=== PATIENT | female | born 1935 | race Caucasian/White ===

== ENCOUNTER 2018-08-21 16:00 | Inpatient (IN) | payer OTHER ==
[~2018-08-21] VITALS: Ht 167.6 cm; Wt 102.1 kg
[2018-08-21 16:13] VITALS: BP_SYST 146
[2018-08-21] MEDS ORDERED: FURO-150 PO (16:23)
[2018-08-21] MEDS ORDERED: LOSA100T3 PO (16:23)
[2018-08-21] MEDS ORDERED: SIMV20TA2 PO (16:23)
[2018-08-21] MEDS ORDERED: ASPI-1153 PO (16:23)
[2018-08-21] MEDS ORDERED: ESCI10TA PO (16:23)
[2018-08-21] MEDS ORDERED: OMEG-95 PO (16:23)
[2018-08-21] MEDS ORDERED: PRO40 PO (16:23)
[2018-08-21] MEDS ORDERED: AMLO5TAB4 PO (16:23)
[2018-08-21 16:45] LABS: HEMATOCRIT 40.2 % (36-48); HEMOGLOBIN 13.9 g/dL (12.0-16.0); RED BLOOD CELL COUNT(AUTO) 4.51 MIL/uL (4.2-6.2)
[2018-08-21 16:46] LABS: MEAN CORPUSCULAR HEMOGLOBIN 31 pg (27-31); MEAN CORPUSCULAR HGB CONC 35 % (32-36); MEAN CORPUSCULAR VOLUME 89 fL (79.0-98.0); RED CELL DISTRIBUTION WIDTH 14.4 % (9.0-15.0)
[2018-08-21 16:47] LABS: BASOPHILS # (AUTO) 0.1 K/uL (0.0-0.2); BASOPHILS % (AUTO) 0.9 % (0.0-2.0); EOSINOPHILS % (AUTO) 0.2 % (0.0-4.0); LYMPHOCYTES # (AUTO) 1.3 K/uL (1.0-5.5); MONOCYTES # (AUTO) 0.6 K/uL (0.0-1.0); MONOCYTES % (AUTO) 6.8 % (1.7-9.3); NEUTROPHILS % (AUTO) 78.1 % (40.0-70.0); PLATELET COUNT (AUTO) 249 K/uL (130-430)
[2018-08-21 16:54] LABS: ANION GAP 11 (5-15); CALCIUM 9.6 mg/dL (8.4-11.0); CHLORIDE 102 mmol/L (98-107); CREATININE 1.06 mg/dL (0.55-1.30); GLUCOSE 121 mg/dL (70-99); POTASSIUM 4.2 mmol/L (3.5-5.1); SODIUM SERUM 136 mmol/L (136-145); UREA NITROGEN, BLOOD 18 mg/dL (8-21)
[2018-08-21 16:59] LABS: ALANINE AMINOTRANSFERASE 26 U/L (12-78); ALBUMIN 3.7 g/dL (3.4-4.8); ASPARTATE AMINOTRANSFERASE 28 U/L (10-37); TOTAL BILIRUBIN 0.6 mg/dL (0.0-1.0)
[2018-08-21 17:13] LABS: INR 0.9 (0.8-1.2); PROTHROMBIN TIME 9.6 SECS (9.5-12.5)
[2018-08-21] MEDS ORDERED: ALBUTEROL SULFATE 0.083% 2.5 MG/3 ML VIAL.NEB INH PRN (18:00)
[2018-08-21] MEDS ORDERED: IPRATROPIUM BROM 0.5 MG/2.5 ML VIAL.NEB (ATROVENT) INH PRN (18:00)
[2018-08-21 18:33] LABS: BILIRUBIN,URINE NEGATIVE (NEGATIVE); BLOOD, URINE NEGATIVE (NEGATIVE); CLARITY/URINE SL HAZY (CLEAR); COLOR,URINE YELLOW (YELLOW); GLUCOSE,URINE NEGATIVE (NEGATIVE); KETONES,URINE TRACE (NEGATIVE); LEUKOCYTE ESTERASE ,URINE 1+ (NEGATIVE); NITRITE, URINE NEGATIVE (NEGATIVE); PH,URINE 5.5 (5.0-8.0); PROTEIN URINE NEGATIVE (NEGATIVE); UROBILINOGEN,URINE 0.2 (0.2-1.0)
[2018-08-21 18:51] LABS: BACTERIA,URINE FEW /HPF (None Seen); MUCUS,URINE 2+ /LPF (None Seen); RBC,URINE NONE SEEN /HPF (0-3)
[2018-08-21 18:56] VITALS: BP_SYST 141
[2018-08-21 19:48] VITALS: BP_SYST 141
[2018-08-21 21:30] VITALS: BP_SYST 139
[2018-08-21] MEDS: methylPREDNISolone SOD SUCC/PF 62.5 MG/ML VIAL IVP SCH (22:30)
[2018-08-21 23:56] VITALS: BP_SYST 130
[2018-08-22] MEDS: methylPREDNISolone SOD SUCC/PF 62.5 MG/ML VIAL IVP SCH (06:04)
[2018-08-22 08:20] VITALS: BP_SYST 144
[2018-08-22] MEDS ORDERED: *LOVENOX 1MG/KG Q12H/PHARMACY XX ONE (08:45)
[2018-08-22] MEDS ORDERED: ASPIRIN 81 MG TABLET(ECOTRIN) PO SCH (09:00)
[2018-08-22] MEDS ORDERED: FUROSEMIDE 20 MG TABLET PO SCH (09:00)
[2018-08-22] MEDS ORDERED: cefTRIAXone 1 GM in D5W 50 ML IV SCH (09:00)
[2018-08-22] MEDS ORDERED: ASPIRIN 325 MG TABLET PO SCH (09:00)
[2018-08-22] MEDS ORDERED: amLODIPine BESYLATE 5 MG TABLET PO SCH (09:00)
[2018-08-22] MEDS ORDERED: LOSARTAN POTASSIUM 50 MG TABLET (COZAAR) PO SCH (09:00)
[2018-08-22] MEDS ORDERED: AZITHROMYCIN 500 MG in NS 250 ML IV SCH (09:00)
[2018-08-22] MEDS ORDERED: CITALOPRAM HYDROBROMIDE 20 MG TABLET PO SCH (09:00)
[2018-08-22] MEDS ORDERED: ENOXAPARIN SODIUM 100 MG/ML SYRINGE SUBCUT ONE (09:15)
[2018-08-22] MEDS ORDERED: IOHEXOL 350 mgI/mL, 150 ML INFUS..BTL IV ONE (10:19)
[2018-08-22] MEDS ORDERED: ATORVASTATIN 20 MG TABLET PO ONE (11:15)
[2018-08-22] MEDS ORDERED: ASPIRIN 81 MG TAB.CHEW PO ONE (11:15)
[2018-08-22] MEDS ORDERED: HEPARIN 25,000 UNITS/D5W 250ML 250 ML IV PRN (11:30)
[2018-08-22] MEDS ORDERED: HEPARIN SODIUM,PORCINE 3000 UNITS/0.6 ML BOLUS IVP PRN (12:15)
[2018-08-22] MEDS ORDERED: HEPARIN SODIUM,PORCINE 2000 UNITS/0.4 ML BOLUS IVP PRN (12:15)
[2018-08-22] MEDS ORDERED: HEPARIN SODIUM,PORCINE 5000 UNITS/ML VIAL IVP ONE (12:30)
[2018-08-22 12:45] VITALS: BP_SYST 144
[2018-08-22 12:56] VITALS: BP_SYST 144
[2018-08-22] MEDS ORDERED: ENOXAPARIN SODIUM 100 MG/ML SYRINGE SUBCUT SCH (21:00)
[2018-08-22] MEDS ORDERED: SIMVASTATIN 20 MG TABLET PO SCH (21:00)
[2018-08-23] MEDS ORDERED: PANTOPRAZOLE SODIUM 40 MG TAB PO SCH (06:00)
[2018-08-23] MEDS ORDERED: ASPIRIN 81 MG TAB.CHEW PO SCH (09:00)
[2018-08-23] MEDS ORDERED: ATORVASTATIN 20 MG TABLET PO SCH (09:00)
== END 2018-08-22 14:30 | disposition short-term general hospital (02) | DRG 280 ==
LOC: SED 16:00 → STU 18:02
PROVIDERS: ADMIT Internal Medicine Hospice and Palliative Medicine; ATTEND Internal Medicine Hospice and Palliative Medicine
DX: I21.A1 Myocardial infarction type 2 (principal); I26.99 Other pulmonary embolism without acute cor pulmonale; J44.1 Chronic obstructive pulmonary disease with (acute) exacerbation; N39.0 Urinary tract infection, site not specified; I10 Essential (primary) hypertension; I51.89 Other ill-defined heart diseases; I25.10 Atherosclerotic heart disease of native coronary artery without angina pectoris; R79.1 Abnormal coagulation profile; Z90.710 Acquired absence of both cervix and uterus; Z91.048 Other nonmedicinal substance allergy status; Z79.899 Other long term (current) drug therapy; Z79.82 Long term (current) use of aspirin; Z87.891 Personal history of nicotine dependence
CPT/HCPCS: 36415; 36600; 71045; 71260-TC; 80053; 81000-TC; 82803-TC; 83605; 83880; 84484; 85025; 85379; 85610-TC; 85730-TC; 87040-TC; 87086; 93005; 93306; 93970; 94640; 99285; G0378; J0456; J0696; J1644; J1650; J2930; J7050; J7060; J7613; Q9967

== ENCOUNTER 2021-10-19 11:22 | Emergency (ER) | payer OTHER ==
[~2021-10-19] VITALS: Ht 170.2 cm; Wt 98.4 kg
[~2021-10-19 11:22] MED LIST: AMLO5TAB4 PO; ASPI-1393 PO; ESCI10TA PO; FURO-150 PO; LOSA100T3 PO; OMEG-95 PO; PRO40 PO; SIMV20TA2 PO
--- NOTE | 2021-10-19 11:36 | NUR ---
Patient to ER bed 02 to gown for evaluation. Side rails up.
[2021-10-19 11:37] VITALS: BP_SYST 134
--- NOTE | 2021-10-19 11:40 | NUR ---
PT CAME IN FROM HOME C/O LEFT ANKLE PAIN AND SWELLING AFTER TRIP AND FALL YESTERDAY TWISTING THE ANKLE INWARD. PT ABLE TO PLACE WEIGHT ON THE HEEL OF HER FOOT TO AMBULATE, [id number], VSS
--- NOTE | 2021-10-19 11:54 | NUR ---
PORTABLE X-RAY AT THE BEDSIDE
--- NOTE | 2021-10-19 12:19 | NUR ---
PT SITTING IN CHAIR, ICE PACK ON ANKLE, FAMILY PRESENT, NO DISTRESS NOTED
[2021-10-19] MEDS ORDERED: IBUP-1969 PO (13:03)
[2021-10-19] MEDS ORDERED: HYDR-3917 PO (13:03)
[2021-10-19 13:45] VITALS: BP_SYST 122
--- NOTE | 2021-10-19 14:02 | NUR ---
Patient given written and verbal discharge instructions and verbalizes understanding. ER MD discussed with patient the results and treatment provided. Patient in stable condition. ID arm band removed. Rx of NORCO AND IBUPROFEN given. Patient educated on pain management and to follow up with PMD. Pain Scale 0/10. Opportunity for questions provided and answered. Medication side effect fact sheet provided.
== END 2021-10-19 14:02 | disposition home or self-care (01) ==
LOC: SED 11:22
DX: S82.62XA Displaced fracture of lateral malleolus of left fibula, initial encounter for closed fracture (principal); L23.1 Allergic contact dermatitis due to adhesives; J44.9 Chronic obstructive pulmonary disease, unspecified; I10 Essential (primary) hypertension; W19.XXXA Unspecified fall, initial encounter; Y93.89 Activity, other specified; Y92.89 Other specified places as the place of occurrence of the external cause; Y99.8 Other external cause status
CPT/HCPCS: 73590-TC; 73700-TC; 76376; 99284

== ENCOUNTER 2023-05-22 17:28 | Emergency (ER) | payer OTHER ==
[~2023-05-22] VITALS: Ht 165.1 cm; Wt 104.8 kg
[~2023-05-22 17:28] MED LIST changes: +HYDR-3917 PO; +IBUP-1969 PO; +LOSA-415 PO; -LOSA100T3 PO; +SIMV-343 PO; -SIMV20TA2 PO
[2023-05-22 19:14] VITALS: BP_SYST 142; PULSE 79; TEMP 97.6; O2SAT 99
[2023-05-22 22:03] VITALS: BP_SYST 142; PULSE 79; TEMP 97.6; O2SAT 99
== END 2023-05-22 22:03 | disposition left against medical advice (07) ==
LOC: SED 17:28
DX: M79.661 Pain in right lower leg (principal); M79.662 Pain in left lower leg; Z53.21 Procedure and treatment not carried out due to patient leaving prior to being seen by health care provider
CPT/HCPCS: 99281